=== PATIENT | male | born 1950 | race Caucasian/White ===

== ENCOUNTER 2016-07-03 07:58 | Outpatient (CLI) | payer MEDICARE, OTHER | END 2016-07-03 07:59 | disposition home or self-care (01) | DX: Z79.899 Other long term (current) drug therapy (principal); M19.90 Unspecified osteoarthritis, unspecified site; E78.2 Mixed hyperlipidemia ==

== ENCOUNTER 2017-03-26 09:43 | Outpatient (CLI) | payer MEDICARE, OTHER ==
--- NOTE | 2017-03-26 13:06 | XRAY Report ---
TWO VIEW STANDING BILATERAL KNEES: 03/26/2017 CLINICAL INDICATION: Pain. FINDINGS: Standing frontal and lateral views of both knees are compared to films of the left knee of 04/30/2011. Mild osteoarthritis is again seen. There is no evidence of interval fracture. A moderate left joint e ffusion is now present. No right effusion is seen. Patellar and tibial enthesophytes are noted bilate rally. IMPRESSION: MODERATE LEFT KNEE JOINT EFFUSION. MILD BILATERAL OSTEOARTHRITIS. JOB #: [id number] EXT JOB #:[id number]
== END 2017-03-26 09:44 | disposition home or self-care (01) ==
LOC: DI 09:43
PROVIDERS: ATTEND Nurse Practitioner Primary Care
DX: M17.0 Bilateral primary osteoarthritis of knee (principal); M25.462 Effusion, left knee
CPT/HCPCS: 73565

== ENCOUNTER 2017-07-14 08:17 | Outpatient (CLI) | payer MEDICARE, OTHER ==
[2017-07-14 10:52] LABS: ALBUMIN 4.2 g/dL (3.2-5.5); ALBUMIN/GLOBULIN RATIO 1.6 (1.0-2.2); ALKALINE PHOSPHATASE 44 IU/L (42-121); ALT ALANINE AMINOTRANSFERASE 20 IU/L (10-60); AST ASPARTATE AMINOTRANSFERASE 21 IU/L (10-42); BASOPHILS % (AUTO) 0.3 %; BILIRUBIN,TOTAL 1.3 mg/dL (0.2-1.0); BUN - BLOOD UREA NITROGEN 23 mg/dL (6-20); CARBON DIOXIDE - CO2 26 mmol/L (21-32); CHLORIDE 102 mmol/L (101-111); CHOL/HDL RATIO 4.2 (<5.0); CHOLESTEROL 235 mg/dL; EOSINOPHILS # (AUTO) 0.2 10^3/uL (0.0-0.7); EOSINOPHILS % (AUTO) 3.1 %; GFR - MDRD 75 (>89); GLUCOSE 97 mg/dL (70-100); HDL CHOLESTEROL 56 mg/dL; HGB - HEMOGLOBIN 16.6 g/dL (14.0-18.0); LDL CHOLESTEROL,CALCULATED 158 mg/dL; LDL/HDL RATIO 2.8 (<3.6); LYMPHOCYTES # (AUTO) 1.9 10^3/uL (1.5-3.5); LYMPHOCYTES % (AUTO) 33.7 %; MEAN CORPUSCULAR HEMOGLOBIN 30.3 pg (27.0-31.0); MEAN CORPUSCULAR HGB CONC 34.4 g/dL (32.0-36.0); MEAN PLATELET VOLUME 9.2 fL (7.4-11.4); MONOCYTES # (AUTO) 0.5 10^3/uL (0.0-1.0); MONOCYTES % (AUTO) 8.3 %; NEUTROPHILS # (AUTO) 3.2 10^3/uL (1.5-6.6); NEUTROPHILS % (AUTO) 54.6 %; PLT - PLATELET COUNT 165 10^3/uL (130-450); RED BLOOD COUNT 5.48 10^6/uL (4.70-6.10); RED CELL DISTRIBUTION WIDTH 14.1 % (12.0-15.0); SODIUM 136 mmol/L (135-145); TOTAL PROTEIN 6.8 g/dL (6.7-8.2); VLDL CHOLESTEROL 21 mg/dL; WHITE BLOOD COUNT 5.8 x10^3/uL (4.8-10.8)
[2017-07-14 11:07] LABS: HB2 TOTAL 18.3 g/dL; HEMOGLOBIN A1C 0.68 g/dL; HEMOGLOBIN A1C % 5.6 % (4.6-6.2)
== END 2017-07-14 08:18 | disposition home or self-care (01) ==
LOC: LAB.F 08:17
PROVIDERS: ATTEND Internal Medicine
DX: Z01.818 Encounter for other preprocedural examination (principal); R73.9 Hyperglycemia, unspecified; E78.5 Hyperlipidemia, unspecified; M23.92 Unspecified internal derangement of left knee
CPT/HCPCS: 36415; 80053; 80061; 81001; 81003; 83036; 83721; 85025; 87086

== ENCOUNTER 2018-08-08 07:49 | Outpatient (CLI) | payer MEDICARE, OTHER ==
[2018-08-08 11:22] LABS: ALBUMIN 4.1 g/dL (3.2-5.5); ALBUMIN/GLOBULIN RATIO 1.6 (1.0-2.2); ALKALINE PHOSPHATASE 45 IU/L (42-121); ALT ALANINE AMINOTRANSFERASE 23 IU/L (10-60); AST ASPARTATE AMINOTRANSFERASE 25 IU/L (10-42); BUN - BLOOD UREA NITROGEN 17 mg/dL (6-20); CALCIUM 8.9 mg/dL (8.5-10.3); CARBON DIOXIDE - CO2 25 mmol/L (21-32); CHLORIDE 101 mmol/L (101-111); CHOL/HDL RATIO 3.7 (<5.0); CHOLESTEROL 213 mg/dL; CREATININE 0.7 mg/dL (0.6-1.2); GFR - MDRD 112 (>89); GLUCOSE 113 mg/dL (70-100); HDL CHOLESTEROL 57 mg/dL; LDL CHOLESTEROL,CALCULATED 141 mg/dL; LDL/HDL RATIO 2.5 (<3.6); SODIUM 134 mmol/L (135-145); TOTAL PROTEIN 6.7 g/dL (6.7-8.2); VLDL CHOLESTEROL 15 mg/dL
[2018-08-08 11:40] LABS: HB2 TOTAL 18.1 g/dL; HEMOGLOBIN A1C 0.67 g/dL; HEMOGLOBIN A1C % 5.5 % (4.6-6.2)
== END 2018-08-08 07:50 | disposition home or self-care (01) ==
LOC: LAB.F 07:49
PROVIDERS: ATTEND Internal Medicine
DX: E78.5 Hyperlipidemia, unspecified (principal); R73.02 Impaired glucose tolerance (oral); Z12.5 Encounter for screening for malignant neoplasm of prostate
CPT/HCPCS: 36415; 80053; 80061; 83036; G0103; 83721; 84153

== ENCOUNTER 2020-05-24 07:00 | Outpatient (CLI) | payer MEDICARE, OTHER | END 2020-05-24 23:59 | disposition home or self-care (01) | LOC: COV 07:00 | PROVIDERS: ATTEND Ophthalmology | DX: Z01.812 Encounter for preprocedural laboratory examination (principal); H25.811 Combined forms of age-related cataract, right eye; Z20.822 Contact with and (suspected) exposure to COVID-19 ==

== ENCOUNTER 2020-06-07 14:54 | Outpatient (CLI) | payer MEDICARE, OTHER | END 2020-06-07 14:55 | disposition home or self-care (01) | LOC: COV 14:54 | PROVIDERS: ATTEND Ophthalmology | DX: Z01.812 Encounter for preprocedural laboratory examination (principal); H25.811 Combined forms of age-related cataract, right eye; Z20.822 Contact with and (suspected) exposure to COVID-19 ==

== ENCOUNTER 2020-06-13 06:56 | Day surgery (SDC) | payer MEDICARE, OTHER ==
[~2020-06-13 06:56] MED LIST: KETOROLAC 0.45% OPHTH DROPS ONE; PHENYLEPHRINE 2.5% OPHTH 2 ML DROPS ONE; PROPARACAINE 0.5% OPHTH DROPS 15 ML ONE
[2020-06-13] MEDS ORDERED: LACTATED RINGERS 500 ML IV ONE ×2 (07:20→08:29)
[2020-06-13] MEDS ORDERED: KETOROLAC 0.45% OPHTH DROPS ONE (07:42)
--- NOTE | 2020-06-13 07:44 | ANESTHESIA ---
Pre-Anesthesia VS, & Labs - Diagnosis Right cataract - Procedure Right PhacoIOL Vital Signs: Temp Pulse Resp BP Pulse Ox 36.4 C L 70 19 156/93 H 99 06/13/20 07:00 06/13/20 07:00 06/13/20 07:00 06/13/20 07:00 06/13/20 07:00 Height: 5 ft 11 in Weight (kg): 95 kg Body Mass Index: 29.2 BMI Classification: Overweight - NPO Other (black coffee at 0450 06/13/20) Home Medications and Allergies Home Medications: Ambulatory Orders Doxycycline Hyclate [Vibramycin] 100 mg PO BID 06/12/20 Multivitamin/Iron/Folic Acid [Centrum Adults Tablet] 1 tab PO DAILY 06/12/20 Naproxen Sodium [Aleve] 440 mg PO DAILY 06/12/20 Testosterone Cypionate [Depo-Testosterone] 100 mg IM ONCE 06/12/20 metroNIDAZOLE 0.75% GEL 1 applic TOP DAILY 06/12/20 Doxycycline Hyclate [Vibramycin] 100 mg PO BID 06/12/20 Multivitamin/Iron/Folic Acid [Centrum Adults Tablet] 1 tab PO DAILY 06/12/20 Naproxen Sodium [Aleve] 440 mg PO DAILY 06/12/20 Testosterone Cypionate [Depo-Testosterone] 100 mg IM ONCE 06/12/20 metroNIDAZOLE 0.75% GEL 1 applic TOP DAILY 06/12/20 Allergies/Adverse Reactions: Allergies Allergy/AdvReac Type Severity Reaction Status Date / Time No Known Drug Allergies Allergy Verified 06/12/20 13:44 Anes History & Medical History - Anesthetic History Family history of Anesthesia Complications: Denies Family history of Malignant Hyperthermia: Denies - Medical History Cardiovascular: reports: None Pulmonary: reports: None Gastrointestinal: reports: None Urinary: reports: None Musculoskeletal: reports: None Endocrine/Autoimmune: reports: None Skin: reports: Rosacea Psychosocial: reports: No issues indicated - Surgical History Dermatologic: Other Exam Dental: WNL Neck Mobility: Normal Mallampati classification: I Thyromental Distance: 4-6 cm Respiratory: Lungs clear Cardiovascular: Regular rate Abdomen: Normal bowel sounds Extremities: No clubbing Neurological: Normal gait Mental/Cognitive Status: Alert/Oriented X3 Cognitive Status: Within normal limits (ANIAK, R hearing aid removed) Plan Anesthesia Type: MAC Consent for Procedure(s) Verified and Reviewed: Yes Code Status: Attempt Resuscitation ASA classification: 2-Mild systemic disease Is this case an emergency?: No
[2020-06-13] MEDS ORDERED: MIDAZOLAM 2 MG/2 ML VIAL ONE (07:53)
[2020-06-13] MEDS ORDERED: EPINEPHrine 1 MG/ML AMP ONE (07:57)
[2020-06-13] MEDS ORDERED: TRIAMCIN/MOXIFLOX OPHTHALMIC 0.6 ML VIAL IO ONE ×2 (07:57→08:17)
[2020-06-13] MEDS ORDERED: VANCOMYCIN OPHTHALMI 8MG/0.8ML 8 MG/0.8 ML SYRINGE IO ONE ×2 (07:58→08:18)
[2020-06-13] MEDS ORDERED: BSS/LIDOCAINE/EPINEPHRINE 1 ML SYRINGE ONE (07:58)
[2020-06-13] MEDS ORDERED: TIMOLOL 0.5% OPHTH DROPS ONE (07:58)
[2020-06-13] MEDS ORDERED: BRIMONIDINE 0.2% OPHTH DROPS 5 ML ONE (07:58)
[2020-06-13] MEDS ORDERED: BRIMONIDINE 0.2% OPHTH DROPS 5 ML OPTH ONE (08:17)
[2020-06-13] MEDS ORDERED: CHONDR SULF/HYALURONATE SYRINGE IO ONE (08:17)
[2020-06-13] MEDS ORDERED: TIMOLOL 0.5% OPHTH DROPS OPTH ONE (08:17)
[2020-06-13] MEDS ORDERED: EPINEPHrine 1 MG/ML AMP IR ONE (08:17)
[2020-06-13] MEDS ORDERED: BSS/LIDOCAINE/EPINEPHRINE 1 ML SYRINGE IO ONE (08:17)
[2020-06-13] MEDS ORDERED: PROPARACAINE 0.5% OPHTH DROPS 15 ML EACHEYE ONE (08:18)
[2020-06-13 08:44] VITALS: BP 144/69
--- NOTE | 2020-06-13 09:06 | OPERATIVE REPORT ---
DATE OF SERVICE: 06/13/2020 Physician: Blayne Baker MD PREOPERATIVE DIAGNOSIS: Visually significant cataract, right eye. This was his first cataract surge ry. POSTOPERATIVE DIAGNOSIS: Visually significant cataract, right eye. This was his first cataract surg herrera. PROCEDURE: Phacoemulsification with posterior chamber intraocular lens implant, right eye. SURGEON: Blayne Baker MD ANESTHESIA: Monitored anesthesia care. COMPLICATIONS: None. OPERATIVE INDICATIONS: This is a 70-year-old man with progressive vision loss in the right eye due t o 2+ nuclear sclerotic and 3+ cortical cataract. Best corrected visual acuity was 20/25, with glare to hand motion vision in the right eye. Indications for surgery are overall decrease in vision, diff iculty seeing words on a computer screen, difficulty reading, difficulty seeing words on closed capti on or game scores on TV, difficulty seeing street signs, difficulty driving in low light or at night, difficulty driving at night because of headlights from other vehicles, difficulty with glare or brig ht lights in any situation, and difficulty tracking a golf ball. He was consented at length concerni ng risks and benefits of cataract surgery, after which he expressed a desire to proceed with surgery. OPERATIVE PROCEDURE: The patient was taken to OR #3 and placed under monitored anesthesia care. A s urgical timeout was conducted, confirming correct patient, correct procedure, and correct surgical si te. He was given topical anesthesia, and prepped and draped in the usual sterile fashion. The eye w as entered at the 12 and 9 o'clock positions. Intracameral Shugarcaine was injected into the anterio r chamber, followed by Viscoat. A continuous-tear curvilinear capsulorrhexis was performed. The nuc leus was hydrodissected and phacoemulsified. Cortex was evacuated using automated infusion and aspir ation. Provisc was injected in the capsular bag, and a 19.5 diopter intraocular lens inserted in the bag. Infusion and aspiration were used to evacuate the viscoelastic materials. The eye was inflate d to physiologic pressure using balanced salt solution and found to be watertight. Approximately 0.2 5 mL of a mixture of triamcinolone and moxifloxacin was injected transsclerally into the vitreous in the inferotemporal quadrant. An additional 0.55 mL of a mixture of triamcinolone, moxifloxacin, and vancomycin was injected subconjunctivally in the superior quadrant for infection and inflammation pro phylaxis. Wound integrity was checked with Weck-Radha sponges. Patient was taken from the operating r oom in good condition and given postoperative instructions. TD: 06/13/2020 08:42
--- NOTE | 2020-06-13 11:44 | ANESTHESIA POST OP EVALUATION ---
Anesthesia Post Eval - Post Anesthesia Eval Vitals: Last Vital Signs Temp 36.8 C 06/13/20 08:28 Pulse 76 06/13/20 08:44 Resp 17 06/13/20 08:44 BP 144/69 H 06/13/20 08:44 Pulse Ox 99 06/13/20 08:44 CV Function Including HR & BP: positive: Stable Pain Control: positive: Satisfactory Nausea & Vomiting: positive: Negative Mental Status: positive: Baseline Respiratory Status: Airway Patent Hydration Status: Satisfactory Anesthesia Complications: positive: None
== END 2020-06-13 06:57 | disposition home or self-care (01) ==
LOC: SDS 06:56
PROVIDERS: ATTEND Ophthalmology
DX: H25.811 Combined forms of age-related cataract, right eye (principal); E66.3 Overweight; Z68.29 Body mass index [BMI] 29.0-29.9, adult
CPT/HCPCS: 66984; A9270; J3490; J7120

== ENCOUNTER 2020-07-08 16:52 | Outpatient (CLI) | payer MEDICARE, OTHER | END 2020-07-08 16:53 | disposition home or self-care (01) | LOC: COV 16:52 | PROVIDERS: ATTEND Ophthalmology | DX: Z01.812 Encounter for preprocedural laboratory examination (principal); H25.812 Combined forms of age-related cataract, left eye; Z20.822 Contact with and (suspected) exposure to COVID-19 ==

== ENCOUNTER 2020-07-11 07:39 | Day surgery (SDC) | payer MEDICARE, OTHER ==
[2020-07-11] MEDS ORDERED: LACTATED RINGERS 500 ML IV ONE (07:53)
[2020-07-11] MEDS ORDERED: EPINEPHrine 1 MG/ML AMP ONE (08:32)
[2020-07-11] MEDS ORDERED: BRIMONIDINE 0.2% OPHTH DROPS 5 ML ONE (08:32)
[2020-07-11] MEDS ORDERED: TRIAMCIN/MOXIFLOX OPHTHALMIC 0.6 ML VIAL IO ONE ×2 (08:32→08:59)
[2020-07-11] MEDS ORDERED: BSS/LIDOCAINE/EPINEPHRINE 1 ML SYRINGE ONE (08:33)
[2020-07-11] MEDS ORDERED: VANCOMYCIN OPHTHALMI 8MG/0.8ML 8 MG/0.8 ML SYRINGE IO ONE ×2 (08:33→09:00)
[2020-07-11] MEDS ORDERED: TIMOLOL 0.5% OPHTH DROPS ONE (08:33)
--- NOTE | 2020-07-11 08:56 | ANESTHESIA ---
Pre-Anesthesia VS, & Labs - Diagnosis L cataract - Procedure L PhacoIOL Vital Signs: Temp Pulse Resp BP Pulse Ox 36.5 C 66 17 154/93 H 96 07/11/20 07:54 07/11/20 07:54 07/11/20 07:54 07/11/20 07:54 07/11/20 07:54 Height: 5 ft 11 in Weight (kg): 95.3 kg Body Mass Index: 29.2 BMI Classification: Overweight - NPO >8 hours Home Medications and Allergies Doxycycline Hyclate [Vibramycin] 100 mg PO BID 06/12/20 Multivitamin/Iron/Folic Acid [Centrum Adults Tablet] 1 tab PO DAILY 06/12/20 Naproxen Sodium [Aleve] 440 mg PO DAILY 06/12/20 Testosterone Cypionate [Depo-Testosterone] 100 mg IM ONCE 06/12/20 metroNIDAZOLE 0.75% GEL [Flagyl Gel] 1 applic TOP DAILY 06/12/20 Allergies/Adverse Reactions: Allergies Allergy/AdvReac Type Severity Reaction Status Date / Time No Known Drug Allergies Allergy Verified 06/12/20 13:44 Anes History & Medical History - Anesthetic History Anesthesia Complications: reports: No previous complications Family history of Anesthesia Complications: Denies Family history of Malignant Hyperthermia: Denies - Medical History Cardiovascular: reports: None Pulmonary: reports: None Gastrointestinal: reports: None - Surgical History General: reports: Colonoscopy Eyes Ears Nose Throat (EENT): reports: Cataracts Exam Dental: WNL Mouth Openin Fingerbreadth Neck Mobility: Normal Mallampati classification: II Thyromental Distance: 4-6 cm Plan Anesthesia Type: MAC Consent for Procedure(s) Verified and Reviewed: Yes Code Status: Attempt Resuscitation ASA classification: 2-Mild systemic disease Is this case an emergency?: No
[2020-07-11] MEDS ORDERED: BRIMONIDINE 0.2% OPHTH DROPS 5 ML OPTH ONE (08:58)
[2020-07-11] MEDS ORDERED: TIMOLOL 0.5% OPHTH DROPS OPTH ONE (08:59)
[2020-07-11] MEDS ORDERED: EPINEPHrine 1 MG/ML AMP IR ONE (08:59)
[2020-07-11] MEDS ORDERED: BSS/LIDOCAINE/EPINEPHRINE 1 ML SYRINGE IO ONE (08:59)
[2020-07-11] MEDS ORDERED: PROPARACAINE 0.5% OPHTH DROPS 15 ML EACHEYE ONE (08:59)
[2020-07-11] MEDS ORDERED: CHONDR SULF/HYALURONATE SYRINGE IO ONE (08:59)
[2020-07-11] MEDS ORDERED: MIDAZOLAM 2 MG/2 ML VIAL ONE (09:04)
[2020-07-11] MEDS ORDERED: LACTATED RINGERS 0 ML IV ONE (09:09)
[2020-07-11 09:11] VITALS: BP 149/92
--- NOTE | 2020-07-11 09:30 | OPERATIVE REPORT ---
DATE OF SERVICE: 07/11/2020 Physician: Blayne Baker MD PREOPERATIVE DIAGNOSIS: Visually significant cataract, left eye. Cataract surgery was performed on the right eye on 06/13/2020. POSTOPERATIVE DIAGNOSIS: Visually significant cataract, left eye. Cataract surgery was performed on the right eye on 06/13/2020. PROCEDURE: Phacoemulsification with posterior chamber intraocular lens implant, left eye. SURGEON: Blayne Baker MD ANESTHESIA: Monitored anesthesia care. COMPLICATIONS: None. OPERATIVE INDICATIONS: This is a 70-year-old man with progressive vision loss in the left eye due to 2+ nuclear sclerotic and 3+ cortical cataract. Best corrected visual acuity was 20/25, with glare t o hand motion vision in the left eye. Indications for surgery are overall decrease in vision, diffic ulty reading, difficulty seeing street signs, difficulty driving at night because of headlights from other vehicles, difficulty with glare or bright lights in any situation, and difficulty tracking a go lf ball. He was consented at length concerning risks and benefits of cataract surgery, after which h e expressed a desire to proceed with surgery. OPERATIVE PROCEDURE: The patient was taken to OR #3 and placed under monitored anesthesia care. Allen gical timeout was conducted confirming correct patient, correct procedure, and correct surgical site. He was given topical anesthesia, and prepped and draped in the usual sterile fashion. The eye was entered at the 6 and 3 o'clock positions. Intracameral Shugarcaine was injected into the anterior chamber, followed by Viscoat. A continuous-tear curvilinear capsulorrhexis was performed. Nucleus was hydrodissected and phacoemulsified. The cortex was evacuated using automated infusion a nd aspiration. Provisc was injected in the capsular bag, and a 20.0 diopter intraocular lens inserte d in the bag. Infusion and aspiration were used to evacuate the viscoelastic materials. The eye was inflated to physiologic pressure using balanced salt solution and found to be watertight. Approxima tely 0.25 mL of a mixture of triamcinolone and moxifloxacin was injected transsclerally into the vitr eous in the inferotemporal quadrant. An additional 0.55 mL of a mixture of triamcinolone, moxifloxac in, and vancomycin was injected subconjunctivally in the superior quadrant for infection and inflamma tion prophylaxis. Integrity was checked with Weck-Radha sponges. The patient was taken from the operating room in good c ondition and given postoperative instructions. TD: 07/11/2020 09:23
--- NOTE | 2020-07-11 10:06 | ANESTHESIA POST OP EVALUATION ---
Anesthesia Post Eval - Post Anesthesia Eval Vitals: Last Vital Signs Temp 36.3 C L 07/11/20 09:10 Pulse 70 07/11/20 09:10 Resp 16 07/11/20 09:10 BP 149/92 H 07/11/20 09:10 Pulse Ox 99 07/11/20 09:10 CV Function Including HR & BP: positive: Stable Pain Control: positive: Satisfactory Nausea & Vomiting: positive: Negative Mental Status: positive: Baseline Respiratory Status: Airway Patent Hydration Status: Satisfactory Anesthesia Complications: positive: None
== END 2020-07-11 07:40 | disposition home or self-care (01) ==
LOC: SDS 07:39
PROVIDERS: ATTEND Ophthalmology
DX: H25.812 Combined forms of age-related cataract, left eye (principal); E66.3 Overweight; Z68.29 Body mass index [BMI] 29.0-29.9, adult; Z87.891 Personal history of nicotine dependence; Z98.41 Cataract extraction status, right eye
CPT/HCPCS: 66984; A9270; J7120; V2632

== ENCOUNTER 2020-08-05 08:02 | Outpatient (CLI) | payer MEDICARE, OTHER ==
[2020-08-05 14:13] LABS: BASOPHILS % (AUTO) 0.4 %; EOSINOPHILS # (AUTO) 0.2 10^3/uL (0.0-0.7); EOSINOPHILS % (AUTO) 3.6 %; HCT - HEMATOCRIT 47.9 % (42.0-52.0); HGB - HEMOGLOBIN 15.9 g/dL (14.0-18.0); LYMPHOCYTES # (AUTO) 2.1 10^3/uL (1.5-3.5); LYMPHOCYTES % (AUTO) 37.3 %; MEAN CORPUSCULAR HEMOGLOBIN 30.2 pg (27.0-31.0); MEAN CORPUSCULAR HGB CONC 33.2 g/dL (32.0-36.0); MEAN CORPUSCULAR VOLUME 91.1 fL (80.0-94.0); MONOCYTES # (AUTO) 0.4 10^3/uL (0.0-1.0); MONOCYTES % (AUTO) 7.9 %; NEUTROPHILS # (AUTO) 2.8 10^3/uL (1.5-6.6); NEUTROPHILS % (AUTO) 50.6 %; PLT - PLATELET COUNT 192 10^3/uL (130-450); RED BLOOD COUNT 5.26 10^6/uL (4.70-6.10); RED CELL DISTRIBUTION WIDTH 13.5 % (12.0-15.0); WHITE BLOOD COUNT 5.6 x10^3/uL (4.8-10.8)
== END 2020-08-05 08:03 | disposition home or self-care (01) ==
LOC: LAB.S 08:02
PROVIDERS: ATTEND Internal Medicine
DX: E29.1 Testicular hypofunction (principal); Z12.5 Encounter for screening for malignant neoplasm of prostate; Z51.81 Encounter for therapeutic drug level monitoring; Z79.899 Other long term (current) drug therapy
CPT/HCPCS: 36415; 84402; 84403; 85025; G0103; 81599; 84153

== ENCOUNTER 2020-10-18 07:21 | Outpatient (CLI) | payer MEDICARE, OTHER ==
[2020-10-18 15:17] LABS: CHOL/HDL RATIO 4.1 (<5.0); CHOLESTEROL 207 mg/dL; HDL CHOLESTEROL 51 mg/dL; LDL CHOLESTEROL,CALCULATED 139 mg/dL; LDL/HDL RATIO 2.7 (<3.6); TRIGLYCERIDES 86 mg/dL; VLDL CHOLESTEROL 17 mg/dL
[2020-10-18 15:42] LABS: BASOPHILS % (AUTO) 0.2 %; EOSINOPHILS # (AUTO) 0.3 10^3/uL (0.0-0.7); EOSINOPHILS % (AUTO) 5.2 %; HGB - HEMOGLOBIN 15.7 g/dL (14.0-18.0); LYMPHOCYTES # (AUTO) 1.9 10^3/uL (1.5-3.5); LYMPHOCYTES % (AUTO) 37.5 %; MEAN CORPUSCULAR HEMOGLOBIN 30.3 pg (27.0-31.0); MEAN CORPUSCULAR HGB CONC 33.4 g/dL (32.0-36.0); MEAN CORPUSCULAR VOLUME 90.7 fL (80.0-94.0); MEAN PLATELET VOLUME 11.1 fL (7.4-11.4); MONOCYTES # (AUTO) 0.7 10^3/uL (0.0-1.0); MONOCYTES % (AUTO) 12.9 %; NEUTROPHILS # (AUTO) 2.2 10^3/uL (1.5-6.6); PLT - PLATELET COUNT 174 10^3/uL (130-450); RED BLOOD COUNT 5.18 10^6/uL (4.70-6.10); RED CELL DISTRIBUTION WIDTH 13.2 % (12.0-15.0)
== END 2020-10-18 07:22 | disposition home or self-care (01) ==
LOC: LAB.S 07:21
PROVIDERS: ATTEND Internal Medicine
DX: N41.9 Inflammatory disease of prostate, unspecified (principal); Z79.899 Other long term (current) drug therapy; E29.1 Testicular hypofunction
CPT/HCPCS: 36415; 80061; 81599; 83721; 84153; 84402; 84403; 85025

== ENCOUNTER 2020-12-24 07:36 | Outpatient (CLI) | payer MEDICARE, OTHER ==
--- NOTE | 2020-12-24 09:35 | XRAY Report ---
PROCEDURE: Foot 3 View RT INDICATIONS: PLANTAR FASCIITIS TECHNIQUE: 3 views of the foot were acquired. COMPARISON: None FINDINGS: Bones: No fractures or dislocations. No suspicious bony lesions. Large calcaneal bone spurs. Soft tissues: No tibiotalar joint effusion. Achilles tendon appears normal. IMPRESSION: Calcaneal bone spurs. Reviewed by: Martha Maier MD, PhD on 12/24/2020 9:34 AM PDT Approved by: Martha Maier MD, PhD on 12/24/2020 9:34 AM PDT Station ID: [id number]
== END 2020-12-24 23:59 | disposition home or self-care (01) ==
LOC: DI.S 07:36
PROVIDERS: ATTEND Emergency Medicine
DX: M77.31 Calcaneal spur, right foot (principal)

== ENCOUNTER 2021-02-06 11:19 | Outpatient (CLI) | payer MEDICARE, OTHER | END 2021-02-06 11:20 | disposition home or self-care (01) | LOC: RT 11:19 | PROVIDERS: ATTEND Internal Medicine Cardiovascular Disease | DX: R06.00 Dyspnea, unspecified (principal) | CPT/HCPCS: 93005 ==

== ENCOUNTER 2021-02-20 07:44 | Outpatient (CLI) | payer MEDICARE, OTHER ==
--- NOTE | 2021-02-20 08:41 | CARDIAC PROCEDURE NOTE ---
Stress Test Report Service Date: 02/20/21 Service Time: 08:00 Ordering Provider: Josafat Newton MD Indication for Test: Assess exertional shortness of breath and chest pressure. Significant Medical History: -Bertin reports a long history of gradually increasing dyspnea with exertion dating back about 20 years; his exertional dyspnea has gradually gotten worse in recent months. Whereas last winter he was riding his bicycle while on vacation in [place], since return to [facility] this spring he has been quite sedentary. Upon walking uphill to his mailbox locally, in addition to shortness of breath he has been experiencing pressure-like chest discomfort to a moderate degree. These symptoms may also be associated with a sensation of wheezing and diaphoresis, though the latter is not dramatic. His symptoms austen with rest and he has not experienced them at rest. -He also reports taking testosterone shots every 2 weeks and if he is even a few days late he begins to feel poorly and may awaken at night with sweating. He has not been previously treated with medication for hypertension or hyperlipidemia, though perhaps there has been some evidence of these entities at his medical examinations. Cardiac Risk Factors: He reports untreated hyperlipidemia and a brother with history of stroke in his brother at age ~70; no known history of hypertension, diabetes and only mild remote smoking history. Type of Stress Test: ETT with Echocardiography Procedure: -Exercise Treadmill Test- After signing informed consent, resting echo images were obtained and the patient then performed treadmill exercise using a Jeffrey protocol. The patient exercised for 6 minutes 37 seconds and achieved a peak heart rate of 146 (97 percent predicted maximum heart rate for age), and an estimated workload of 10.2 METS. The test was terminated due to fatigue/shortness of breath after having achieved his target heart rate. Resting heart rate: 72 Peak heart rate: 146 Normal response to exercise. Resting BP: 177/106 Peak BP: 243/124 Hypertensive at rest with physiologic BP increase with exercise. Rhythm during exercise: Sinus rhythm throughout, with occasional isolated PVCs during exercise; ectopy frequency increased in early recovery, with new occurrence of couplets and triplets. Symptoms: Dyspnea increased early in stage I, soon accompanied by chest press ure, though the latter did not increase significantly through the exercise phase. He also perceived wheezing, which appeared to be from an upper airway source as auscultation of his lungs did not confirm true bronchoconstriction. These symptoms decreased gradually in recovery. EKG at rest showed normal sinus rhythm, normal in all aspects. EKG at peak stress showed J-point depression with upsloping ST segments, NOT clearly meeting criteria for ischemia. In Recovery after stress echo images were obtained, monitoring had to be removed as the patient had an urgent need to void; thus follow up data on HR and BP in recovery is not available. Echo imaging performed at rest and with stress will be reported separately. ISachin MD, was present throughout this treadmill stress echoca rdiogram and supervised it in its entirety. Summary: 1) Exercise tolerance slightly below average for age and gender as evidenced by SOCRATES of 8% (sedentary scale). 2) Normal resting EKG. 3) Adequate level of exercise was achieved on this treadmill stress test. 4) Markedly hypertensive at rest with physiologic BP increase with exercise. 5) No clear ischemic ST changes were seen at peak stress. However there was increased ectopy frequency and grade (ie couplets and triplets) in early recovery. 6) Echo image analysis revealed normal left ventricular size and function at rest, with inducible hypokinesis of the mid and distal anterior septum. See separate echo report for further detail. CONCLUSIONS: 1) Marked hypertension at rest, in patient not treated with anti-HTNsive medications. He reports his has an arm BP cuff and over the next few days he will measure and record blood pressures for further evaluation. 2) No clear EKG signs of ischemia, but increase in ectopy frequency and grade during recovery is an adverse prognostic indicator. 3) Echo image analysis reveals normal resting LV wall motion throughout, with inducible anteroseptum hypokinesis, consistent with ischemia. 4) Referring provider (Dr Newton) informed of abnormal results on the day of the study.
== END 2021-02-20 07:45 | disposition home or self-care (01) ==
LOC: DI 07:44
PROVIDERS: ATTEND Internal Medicine Cardiovascular Disease
DX: R07.9 Chest pain, unspecified (principal); E78.5 Hyperlipidemia, unspecified; Z82.3 Family history of stroke; Z87.891 Personal history of nicotine dependence
CPT/HCPCS: 93350

== ENCOUNTER 2021-02-21 07:14 | Outpatient (CLI) | payer MEDICARE, OTHER ==
[2021-02-21 14:45] LABS: BASOPHILS % (AUTO) 0.5 %; EOSINOPHILS # (AUTO) 0.2 10^3/uL (0.0-0.7); EOSINOPHILS % (AUTO) 2.7 %; HCT - HEMATOCRIT 48.8 % (42.0-52.0); HGB - HEMOGLOBIN 16.1 g/dL (14.0-18.0); LYMPHOCYTES # (AUTO) 1.9 10^3/uL (1.5-3.5); LYMPHOCYTES % (AUTO) 33.2 %; MEAN CORPUSCULAR HEMOGLOBIN 30.4 pg (27.0-31.0); MEAN CORPUSCULAR VOLUME 92.2 fL (80.0-94.0); MEAN PLATELET VOLUME 11.1 fL (7.4-11.4); MONOCYTES # (AUTO) 0.5 10^3/uL (0.0-1.0); MONOCYTES % (AUTO) 9.6 %; NEUTROPHILS % (AUTO) 53.6 %; PLT - PLATELET COUNT 176 10^3/uL (130-450); RED BLOOD COUNT 5.29 10^6/uL (4.70-6.10); RED CELL DISTRIBUTION WIDTH 13.7 % (12.0-15.0); WHITE BLOOD COUNT 5.6 x10^3/uL (4.8-10.8)
[2021-02-21 15:18] LABS: ALBUMIN/GLOBULIN RATIO 1.6 (1.0-2.2); ALKALINE PHOSPHATASE 43 IU/L (42-121); ALT ALANINE AMINOTRANSFERASE 19 IU/L (10-60); AST ASPARTATE AMINOTRANSFERASE 20 IU/L (10-42); BILIRUBIN,TOTAL 0.9 mg/dL (0.2-1.0); BUN - BLOOD UREA NITROGEN 19 mg/dL (6-20); CALCIUM 9.1 mg/dL (8.5-10.3); CARBON DIOXIDE - CO2 25 mmol/L (21-32); CHLORIDE 102 mmol/L (101-111); CHOL/HDL RATIO 3.9 (<5.0); CHOLESTEROL 193 mg/dL; CREATININE 0.9 mg/dL (0.6-1.2); GFR - MDRD 83 (>89); GLUCOSE 105 mg/dL (70-100); HDL CHOLESTEROL 50 mg/dL; LDL CHOLESTEROL,CALCULATED 124 mg/dL; LDL/HDL RATIO 2.5 (<3.6); POTASSIUM 4.3 mmol/L (3.5-5.0); SODIUM 136 mmol/L (135-145); TOTAL PROTEIN 6.5 g/dL (6.7-8.2); TRIGLYCERIDES 97 mg/dL; VLDL CHOLESTEROL 19 mg/dL
== END 2021-02-21 07:15 | disposition home or self-care (01) ==
LOC: LAB.S 07:14
PROVIDERS: ATTEND Internal Medicine
DX: E78.5 Hyperlipidemia, unspecified (principal); Z79.899 Other long term (current) drug therapy; E29.1 Testicular hypofunction
CPT/HCPCS: 36415; 80053; 80061; 81599; 83721; 84402; 84403; 85025

== ENCOUNTER 2021-02-26 09:10 | Outpatient (CLI) | payer MEDICARE, OTHER ==
--- NOTE | 2021-02-26 09:26 | XRAY Report ---
PROCEDURE: Chest 2 View X-Ray INDICATIONS: SOB TECHNIQUE: 2 view(s) of the chest. COMPARISON: June 24, 2007 FINDINGS: Surgical changes and devices: None. Lungs and pleura: No pleural effusions or pneumothorax. Lungs are clear. Mediastinum: Mediastinal contours are normal. Heart size is normal. Bones and chest wall: No suspicious bony abnormalities. Soft tissues appear unremarkable. IMPRESSION: No acute cardiopulmonary abnormality. Reviewed by: Ollie Umaña MD on 02/26/2021 9:25 AM PDT Approved by: Ollie Umaña MD on 02/26/2021 9:25 AM PDT Station ID: [id number]
== END 2021-02-26 09:11 | disposition home or self-care (01) ==
LOC: DI.S 09:10
PROVIDERS: ATTEND Internal Medicine
DX: R06.02 Shortness of breath (principal)

== ENCOUNTER 2021-03-19 09:08 | Outpatient (CLI) | payer MEDICARE, OTHER ==
[2021-03-19] MEDS ORDERED: ALBUTEROL 1 PUFF INH STA (11:05)
== END 2021-03-19 09:09 | disposition home or self-care (01) ==
LOC: RT 09:08
PROVIDERS: ATTEND Internal Medicine
DX: R06.02 Shortness of breath (principal)
CPT/HCPCS: 94060; 94729

== ENCOUNTER 2021-04-24 07:17 | Outpatient (CLI) | payer MEDICARE, OTHER ==
[2021-04-24 15:01] LABS: BASOPHILS % (AUTO) 0.3 %; EOSINOPHILS # (AUTO) 0.2 10^3/uL (0.0-0.7); HCT - HEMATOCRIT 50.4 % (42.0-52.0); HGB - HEMOGLOBIN 16.8 g/dL (14.0-18.0); LYMPHOCYTES # (AUTO) 2.1 10^3/uL (1.5-3.5); LYMPHOCYTES % (AUTO) 35.8 %; MEAN CORPUSCULAR HEMOGLOBIN 30.4 pg (27.0-31.0); MEAN CORPUSCULAR HGB CONC 33.3 g/dL (32.0-36.0); MEAN CORPUSCULAR VOLUME 91.3 fL (80.0-94.0); MEAN PLATELET VOLUME 10.8 fL (7.4-11.4); MONOCYTES # (AUTO) 0.5 10^3/uL (0.0-1.0); MONOCYTES % (AUTO) 9.2 %; NEUTROPHILS # (AUTO) 2.9 10^3/uL (1.5-6.6); NEUTROPHILS % (AUTO) 50.4 %; PLT - PLATELET COUNT 180 10^3/uL (130-450); RED BLOOD COUNT 5.52 10^6/uL (4.70-6.10); RED CELL DISTRIBUTION WIDTH 13.6 % (12.0-15.0); WHITE BLOOD COUNT 5.8 x10^3/uL (4.8-10.8)
[2021-04-24 15:27] LABS: ALBUMIN 4.2 g/dL (3.2-5.5); ALBUMIN/GLOBULIN RATIO 1.8 (1.0-2.2); ALKALINE PHOSPHATASE 44 IU/L (42-121); ALT ALANINE AMINOTRANSFERASE 22 IU/L (10-60); AST ASPARTATE AMINOTRANSFERASE 21 IU/L (10-42); BUN - BLOOD UREA NITROGEN 21 mg/dL (6-20); CALCIUM 8.7 mg/dL (8.5-10.3); CARBON DIOXIDE - CO2 25 mmol/L (21-32); CHLORIDE 101 mmol/L (101-111); CHOL/HDL RATIO 3.2 (<5.0); CHOLESTEROL 173 mg/dL; CREATININE 0.8 mg/dL (0.6-1.2); GFR - MDRD 95 (>89); GLUCOSE 101 mg/dL (70-100); HDL CHOLESTEROL 54 mg/dL; LDL CHOLESTEROL,CALCULATED 105 mg/dL; LDL/HDL RATIO 1.9 (<3.6); POTASSIUM 4.1 mmol/L (3.5-5.0); SODIUM 135 mmol/L (135-145); TOTAL PROTEIN 6.6 g/dL (6.7-8.2); TRIGLYCERIDES 69 mg/dL; VLDL CHOLESTEROL 14 mg/dL
== END 2021-04-24 07:18 | disposition home or self-care (01) ==
LOC: LAB.S 07:17
PROVIDERS: ATTEND Internal Medicine
DX: Z79.899 Other long term (current) drug therapy (principal); Z12.5 Encounter for screening for malignant neoplasm of prostate; E29.1 Testicular hypofunction; E78.5 Hyperlipidemia, unspecified
CPT/HCPCS: 36415; 80053; 80061; 84402; 84403; 85025; G0103; 81599; 83721; 84153

== ENCOUNTER 2022-01-30 08:40 | Outpatient (CLI) | payer MEDICARE, OTHER ==
--- NOTE | 2022-01-30 09:52 | Ultrasound Report ---
PROCEDURE: Aorta Screening INDICATIONS: HIST OF TOBACCO USE TECHNIQUE: Real time scanning was performed of the aorta and iliac arteries, with image documentatio n. COMPARISON: None FINDINGS: Aorta: Proximal aortic diameter measures 3.1 x 2.8 cm. Mid-aorta measures 2.7 x 2.6 cm. Distal aor tic diameter is 2.5 x 2.1 cm. Iliac arteries: Right common iliac artery measures 1.1 x 1 cm. Left common iliac artery measures 1 x 1 cm. IMPRESSION: Mild proximal abdominal aortic aneurysm at 3.1 cm. Reviewed by: Zac Bui MD on 01/30/2022 9:50 AM PDT Approved by: Zac Bui MD on 01/30/2022 9:50 AM PDT Station ID: [id number]
== END 2022-01-30 08:41 | disposition home or self-care (01) ==
LOC: DI 08:40
PROVIDERS: ATTEND Internal Medicine
DX: Z13.6 Encounter for screening for cardiovascular disorders (principal); Z87.891 Personal history of nicotine dependence; I71.4 Abdominal aortic aneurysm, without rupture

== ENCOUNTER 2022-07-23 07:17 | Outpatient (CLI) | payer MEDICARE, OTHER ==
[2022-07-23 14:11] LABS: BASOPHILS % (AUTO) 0.6 %; EOSINOPHILS # (AUTO) 0.3 10^3/uL (0.0-0.7); EOSINOPHILS % (AUTO) 4.1 %; HCT - HEMATOCRIT 49.4 % (42.0-52.0); HGB - HEMOGLOBIN 16.2 g/dL (14.0-18.0); LYMPHOCYTES # (AUTO) 2.2 10^3/uL (1.5-3.5); LYMPHOCYTES % (AUTO) 34.1 %; MEAN CORPUSCULAR HEMOGLOBIN 29.6 pg (27.0-31.0); MEAN CORPUSCULAR HGB CONC 32.8 g/dL (32.0-36.0); MEAN CORPUSCULAR VOLUME 90.1 fL (80.0-94.0); MEAN PLATELET VOLUME 11.1 fL (7.4-11.4); MONOCYTES # (AUTO) 0.5 10^3/uL (0.0-1.0); MONOCYTES % (AUTO) 7.9 %; NEUTROPHILS # (AUTO) 3.5 10^3/uL (1.5-6.6); PLT - PLATELET COUNT 192 10^3/uL (130-450); RED BLOOD COUNT 5.48 10^6/uL (4.70-6.10); RED CELL DISTRIBUTION WIDTH 13.8 % (12.0-15.0); WHITE BLOOD COUNT 6.6 x10^3/uL (4.8-10.8)
[2022-07-23 14:33] LABS: ALBUMIN/GLOBULIN RATIO 1.5 (1.0-2.2); ALKALINE PHOSPHATASE 50 IU/L (42-121); ALT ALANINE AMINOTRANSFERASE 23 IU/L (10-60); AST ASPARTATE AMINOTRANSFERASE 23 IU/L (10-42); BILIRUBIN,TOTAL 0.5 mg/dL (0.2-1.0); BUN - BLOOD UREA NITROGEN 18 mg/dL (6-20); CALCIUM 9.3 mg/dL (8.5-10.3); CARBON DIOXIDE - CO2 27 mmol/L (21-32); CHLORIDE 107 mmol/L (101-111); CHOL/HDL RATIO 2.7 (<5.0); CHOLESTEROL 121 mg/dL; CREATININE 0.8 mg/dL (0.6-1.2); GFR - MDRD 95 (>89); GLUCOSE 97 mg/dL (70-100); HDL CHOLESTEROL 45 mg/dL; LDL CHOLESTEROL,CALCULATED 52 mg/dL; LDL/HDL RATIO 1.2 (<3.6); POTASSIUM 4.6 mmol/L (3.5-5.0); SODIUM 140 mmol/L (135-145); TOTAL PROTEIN 6.6 g/dL (6.7-8.2); TRIGLYCERIDES 122 mg/dL; VLDL CHOLESTEROL 24 mg/dL
== END 2022-07-23 07:18 | disposition home or self-care (01) ==
LOC: LAB.S 07:17
PROVIDERS: ATTEND Internal Medicine
DX: I25.10 Atherosclerotic heart disease of native coronary artery without angina pectoris (principal); E29.1 Testicular hypofunction
CPT/HCPCS: 36415; 80053; 80061; 83721; 84153; 84403; 85025

== ENCOUNTER 2022-12-18 08:27 | Outpatient (CLI) | payer MEDICARE, OTHER ==
[2022-12-18 14:56] LABS: BASOPHILS % (AUTO) 0.5 %; EOSINOPHILS # (AUTO) 0.2 10^3/uL (0.0-0.7); EOSINOPHILS % (AUTO) 2.4 %; HCT - HEMATOCRIT 50.3 % (42.0-52.0); HGB - HEMOGLOBIN 16.4 g/dL (14.0-18.0); LYMPHOCYTES # (AUTO) 2.1 10^3/uL (1.5-3.5); LYMPHOCYTES % (AUTO) 32.1 %; MEAN CORPUSCULAR HEMOGLOBIN 29.8 pg (27.0-31.0); MEAN CORPUSCULAR HGB CONC 32.6 g/dL (32.0-36.0); MEAN CORPUSCULAR VOLUME 91.5 fL (80.0-94.0); MEAN PLATELET VOLUME 10.9 fL (7.4-11.4); MONOCYTES # (AUTO) 0.5 10^3/uL (0.0-1.0); MONOCYTES % (AUTO) 7.3 %; NEUTROPHILS # (AUTO) 3.8 10^3/uL (1.5-6.6); NEUTROPHILS % (AUTO) 57.4 %; PLT - PLATELET COUNT 178 10^3/uL (130-450); RED CELL DISTRIBUTION WIDTH 13.9 % (12.0-15.0); WHITE BLOOD COUNT 6.5 x10^3/uL (4.8-10.8)
== END 2022-12-18 08:28 | disposition home or self-care (01) ==
LOC: LAB.S 08:27
PROVIDERS: ATTEND Internal Medicine
DX: E29.1 Testicular hypofunction (principal)
CPT/HCPCS: 36415; 84153; 84403; 85025

== ENCOUNTER 2023-07-16 07:55 | Outpatient (CLI) | payer MEDICARE, OTHER ==
--- NOTE | 2023-07-16 11:31 | Ultrasound Report ---
PROCEDURE: Renal Ltd (Retroperitoneal Ltd INDICATIONS: AAA TECHNIQUE: Real-time scanning was performed of the abdominal aorta. COMPARISON: 01/30/2022 FINDINGS: Proximal abdominal aorta measures 2.6 x 2.6 cm. Mid abdominal aorta measures 2.6 x 2.9 cm The distal abdominal aorta measures 2.2 x 1.6 cm Right common iliac artery measures 1.2 x 1.1 cm. Left common iliac artery measures 1.3 x 0.9 cm IMPRESSION: No evidence of abdominal aortic aneurysm. Previous we noted possible aortic dilation may have been ar tifactual. Reviewed by: John Barboza MD on 07/16/2023 10:30 AM [facility] Approved by: John Barboza MD on 07/16/2023 10:30 AM [facility] Station ID: [id number]
== END 2023-07-16 07:56 | disposition home or self-care (01) ==
LOC: DI 07:55
PROVIDERS: ATTEND Internal Medicine
DX: I71.40 Abdominal aortic aneurysm, without rupture, unspecified (principal)

== ENCOUNTER 2023-07-23 23:37 | Emergency (ER) | payer MEDICARE, OTHER ==
--- NOTE | 2023-07-24 01:34 | ED Physician Documentation ---
PD HPI DYSPNEA - Stated complaint Stated Complaint: SOA/CONGESTION - Chief complaint Chief Complaint: Resp - History obtained from History obtained from: Patient - Additional information Additional information: HPI from patient. Patient complains of gradual onset URI symptoms approximately 5 days ago. Initially, the symptoms were limited to sore throat and a mild, non-productive cough. However, he has become increasingly short of breath over the past 1 to 2 days. The dyspnea is significantly worse when lying supine, mildly exacerbated with exertion. He denies chest pain. He denies fevers. He has not had similar episodes of dyspnea in the past. He does not have any pulmonary diagnoses (such as asthma, COPD). Review of Systems Constitutional: denies: Fever, Chills, Sweats Cardiac: reports: Reviewed and negative Respiratory: reports: Dyspnea, Cough, Wheezing. denies: Hemoptysis Musculoskeletal: denies: Extremity swelling PD PAST MEDICAL HISTORY - Past Medical History Cardiovascular: High cholesterol Respiratory: None GI: None - Past Surgical History Past Surgical History: Yes - Present Medications Home Medications: Ambulatory Orders Medication Instructions Recorded Confirmed Multivitamin/Iron/Folic Acid 1 tab PO DAILY 06/12/20 07/23/23 [Centrum Adults Tablet] Testosterone Cypionate 100 mg IM ONCE 06/12/20 07/23/23 [Depo-Testosterone] Ascorbic Acid [Vitamin C] 500 mg PO DAILY 07/23/23 07/23/23 Aspirin [Aspirin EC] 81 mg PO DAILY 07/23/23 07/23/23 Rosuvastatin Calcium [Crestor] 20 mg PO DAILY 07/23/23 07/23/23 Albuterol Sulf [Ventolin Hfa 1 - 2 puffs INH Q4HR PRN #1 each 07/24/23 Inhaler] - Allergies Allergies/Adverse Reactions: Allergies Allergy/AdvReac Type Severity Reaction Status Date / Time No Known Drug Allergies Allergy Verified 07/23/23 23:49 - Social History Does the pt smoke?: No Smoking Status: Former smoker Substance Use and Type: Marijuana - Immunizations Immunizations are current?: Yes PD ED PE NORMAL - Vitals Vital signs reviewed: Yes - General General: Alert and oriented X 3, No acute distress, Well developed/nourished - Cardiac Cardiac: RRR, No murmur - Respiratory Respiratory: No respiratory distress PD ED PE EXPANDED - Respiratory Respiratory: Wheezing, Rhonchi, Other (Diffuse and bilateral coarse rhonchi as well as coarse expiratory wheeze) Results - Vitals Vitals: Vital Signs - 24 hr 07/23/23 07/24/23 07/24/23 23:49 00:01 02:00 Temperature 36.5 C Heart Rate 81 76 77 Respiratory 22 18 22 Rate Blood Pressure 164/110 H 118/88 H 155/72 H O2 Saturation 97 96 97 07/24/23 07/24/23 02:15 03:30 Temperature Heart Rate 74 81 Respiratory 18 13 Rate Blood Pressure 143/85 H O2 Saturation 96 Oxygen O2 Source Room air - Labs Labs: Laboratory Tests 07/24/23 07/24/23 07/24/23 00:48 02:20 02:20 WBC 7.5 RBC 5.61 Hgb 16.8 Hct 50.0 MCV 89.1 MCH 29.9 MCHC 33.6 RDW 12.9 Plt Count 167 MPV 10.8 Neut # (Auto) 4.1 Lymph # (Auto) 2.6 [place] # (Auto) 0.6 Eos # (Auto) 0.2 Baso # (Auto) 0.0 Absolute Nucleated RBC 0.00 Nucleated RBC % 0.0 Sodium 135 Potassium 4.2 Chloride 103 Carbon Dioxide 26 Anion Gap 6.0 BUN 19 Creatinine 0.8 Estimated GFR (MDRD) 95 Glucose 113 H Calcium 9.1 B-Natriuretic Peptide Nasal Adenovirus (PCR) NOT DETECTED Nasal B. parapertussis DNA (PCR) NOT DETECTED Nasal Coronavir 229E PCR NOT DETECTED Nasal Coronavir HKU1 PCR NOT DETECTED Nasal Coronavir NL63 PCR NOT DETECTED Nasal Coronavir OC43 PCR NOT DETECTED Nasal Enterovir/Rhinovir PCR NOT DETECTED Nasal Influenza B PCR NOT DETECTED Nasal Influenza A PCR NOT DETECTED Nasal Parainfluen 1 PCR DETECTED A Nasal Parainfluen 2 PCR NOT DETECTED Nasal Parainfluen 3 PCR NOT DETECTED Nasal Parainfluen 4 PCR NOT DETECTED Nasal RSV (PCR) NOT DETECTED Nasal B.pertussis DNA PCR NOT DETECTED Nasal C.pneumoniae (PCR) NOT DETECTED Homero Human Metapneumo PCR NOT DETECTED Nasal M.pneumoniae (PCR) NOT DETECTED Nasal SARS-CoV-2 (PCR) NOT DETECTED 07/24/23 02:20 WBC RBC Hgb Hct MCV MCH MCHC RDW Plt Count MPV Neut # (Auto) Lymph # (Auto) [place] # (Auto) Eos # (Auto) Baso # (Auto) Absolute Nucleated RBC Nucleated RBC % Sodium Potassium Chloride Carbon Dioxide Anion Gap BUN Creatinine Estimated GFR (MDRD) Glucose Calcium B-Natriuretic Peptide 20 Nasal Adenovirus (PCR) Nasal B. parapertussis DNA (PCR) Nasal Coronavir 229E PCR Nasal Coronavir HKU1 PCR Nasal Coronavir NL63 PCR Nasal Coronavir OC43 PCR Nasal Enterovir/Rhinovir PCR Nasal Influenza B PCR Nasal Influenza A PCR Nasal Parainfluen 1 PCR Nasal Parainfluen 2 PCR Nasal Parainfluen 3 PCR Nasal Parainfluen 4 PCR Nasal RSV (PCR) Nasal B.pertussis DNA PCR Nasal C.pneumoniae (PCR) Homero Human Metapneumo PCR Nasal M.pneumoniae (PCR) Nasal SARS-CoV-2 (PCR) - Rads (name of study) chest xray Relevant Findings:: Prelim report reviewed, See rad report PD Medical Decision Making - ED course Complexity details: reviewed results, re-evaluated patient, considered differential, d/w patient ED course: Respiratory PCR panel is positive for parainfluenza 1. He has a normal CBC, BNP. BMP is normal except for insignificant finding of blood sugar 113. He is given DuoNeb and reports feeling markedly improved. On reexamination his lungs are now clear without rhonchi nor wheezing. Prescription for albuterol MDI is electronically submitted to patient's pharmacy of choice. Return precautions are reviewed. Departure - Departure Disposition: 01 Home, Self Care Clinical Impression: Bronchitis with bronchospasm, Parainfluenza type 1 infection Condition: Good Instructions: ED Bronchitis Asthmatic Prescriptions: Albuterol Sulf [Ventolin Hfa Inhaler] 1 - 2 puffs INH Q4HR PRN #1 each PRN Reason: Shortness Of Air/Wheezing Comments: There were no concerning nor diagnostic findings on your blood tests. Your chest x-ray is normal; there is no evidence on the chest x-ray of an infectious process in your lungs such as pneumonia. I suspect you have bronchitis, an infec tion in the upper airways that typically does not result in abnormal findings on chest x-ray. The nasal swab tested positive for a virus called parainfluenza. This virus typically has a benign course and does not benefit from any specific/targeted treatment (such as an antibiotic or anti-viral medication). I have electronically submitted a prescription for an albuterol inhaler to the [facility] pharmacy in [place]. You can use the inhaler every 4 hours as needed for shortness of breath/wheezing. Forms: PCP List Discharge Date/Time: 07/24/23 03:47
[2023-07-24 01:45] LABS: CORONAVIRUS 229E-RESP PCR NOT DETECTED; CORONAVIRUS HKU1-RESP PCR NOT DETECTED; CORONAVIRUS NL63-RESP PCR NOT DETECTED; CORONAVIRUS OC43-RESP PCR NOT DETECTED; INFLUENZA A- RESP PCR PANEL NOT DETECTED; INFLUENZA B - RESP PCR PANEL NOT DETECTED; PARAINFLUENZA VIRUS 1 DETECTED; RHINOVIRUS/ENTEROVIRUS NOT DETECTED; SARS-CoV-2 -RESP PCR PANEL NOT DETECTED
[2023-07-24 01:46] LABS: B. PARAPERTUSSIS- RESP PCR PAN NOT DETECTED; B. PERTUSSIS- RESP PCR PANEL NOT DETECTED; C. PNEUMONIAE- RESP PCR PANEL NOT DETECTED; HUMAN METAPNEUMOVIRUS NOT DETECTED; M. PNEUMONIAE- RESP PCR PANEL NOT DETECTED; PARAINFLUENZA VIRUS 2 NOT DETECTED; PARAINFLUENZA VIRUS 3 NOT DETECTED; PARAINFLUENZA VIRUS 4 NOT DETECTED; RSV- RESP PCR PANEL NOT DETECTED
[2023-07-24] MEDS: IPRATROPIUM/ALBUTEROL 3 ML NEB INH STA (02:15)
[2023-07-24 02:43] LABS: CALCIUM 9.1 mg/dL (8.5-10.3); CREATININE 0.8 mg/dL (0.6-1.3); POTASSIUM 4.2 mmol/L (3.5-4.5)
[2023-07-24 02:53] LABS: BASOPHILS % (AUTO) 0.4 %; EOSINOPHILS # (AUTO) 0.2 10^3/uL (0.0-0.7); EOSINOPHILS % (AUTO) 2.5 %; HGB - HEMOGLOBIN 16.8 g/dL (14.0-18.0); LYMPHOCYTES # (AUTO) 2.6 10^3/uL (1.5-3.5); LYMPHOCYTES % (AUTO) 35.2 %; MEAN CORPUSCULAR HEMOGLOBIN 29.9 pg (27.0-31.0); MEAN CORPUSCULAR HGB CONC 33.6 g/dL (32.0-36.0); MEAN CORPUSCULAR VOLUME 89.1 fL (80.0-94.0); MEAN PLATELET VOLUME 10.8 fL (7.4-11.4); MONOCYTES # (AUTO) 0.6 10^3/uL (0.0-1.0); MONOCYTES % (AUTO) 7.9 %; NEUTROPHILS # (AUTO) 4.1 10^3/uL (1.5-6.6); NEUTROPHILS % (AUTO) 53.9 %; PLT - PLATELET COUNT 167 10^3/uL (130-450); RED BLOOD COUNT 5.61 10^6/uL (4.70-6.10); RED CELL DISTRIBUTION WIDTH 12.9 % (12.0-15.0); WHITE BLOOD COUNT 7.5 x10^3/uL (4.8-10.8)
[2023-07-24 03:49] VITALS: BP 143/85; O2SAT 96
--- NOTE | 2023-07-24 07:58 | XRAY Report ---
PROCEDURE: Chest 2V INDICATIONS: cough, wheezing TECHNIQUE: 2 views of the chest were acquired. COMPARISON: 02/26/2021. FINDINGS: Surgical changes and devices: None. Lungs and pleura: No pleural effusions or pneumothorax. Lungs are clear. Mediastinum: Mediastinal contours appear normal. Heart size is normal. Bones and chest wall: No suspicious bony lesions. Overlying soft tissues appear unremarkable. IMPRESSION: No acute cardiopulmonary process. Findings are concordant with preliminary interpretation provided by [facility]. Reviewed by: Blayne Diehl MD on 07/24/2023 7:57 AM PST Approved by: Blayne Diehl MD on 07/24/2023 7:57 AM PST Station ID: [id number]
== END 2023-07-24 03:47 | disposition home or self-care (01) ==
LOC: ED 23:37
DX: B34.8 Other viral infections of unspecified site (principal); J40 Bronchitis, not specified as acute or chronic; E78.00 Pure hypercholesterolemia, unspecified; Z87.891 Personal history of nicotine dependence; Z79.899 Other long term (current) drug therapy
CPT/HCPCS: 36415; 80048; 83880; 85025; 87633; 94640; 99283; 99284

== ENCOUNTER 2023-11-24 07:00 | Outpatient (CLI) | payer MEDICARE, OTHER ==
--- NOTE | 2023-11-24 13:48 | XRAY Report ---
PROCEDURE: Wrist 1-2V LT INDICATIONS: LEFT WRIST OSTEOARTHRITIS TECHNIQUE: 2 views of the wrist were acquired. COMPARISON: None. FINDINGS: Bones: No fractures or dislocations. Mild narrowing of the radiocarpal joint. Mild first CMC and [place] notriquetral joint space narrowing and juxta-articular osteophytosis. No suspicious bony lesions. Soft tissues: No suspicious soft tissue calcifications or masses. IMPRESSION: 1.No acute bony abnormality. If there is anatomic snuff box tenderness, consider wrist immobilization and repeat radiographs in 10-14 days or cross-sectional imaging now. If pain persists with conservat allyssa management, consider repeat radiographs in 10-14 days or cross-sectional imaging. 2.Mild degenerative changes of the radiocarpal, first CMC and lunotriquetral joints. Reviewed by: Reynaldo Auguste MD on 11/24/2023 1:47 PM PDT Approved by: Reynaldo Auguste MD on 11/24/2023 1:47 PM PDT Station ID: [id number]
== END 2023-11-24 23:59 | disposition home or self-care (01) ==
LOC: DI.S 07:00
PROVIDERS: ATTEND Physician Assistant
DX: M18.12 Unilateral primary osteoarthritis of first carpometacarpal joint, left hand (principal); M19.042 Primary osteoarthritis, left hand

== ENCOUNTER 2023-12-24 07:44 | Outpatient (CLI) | payer MEDICARE, OTHER ==
[2023-12-24 15:40] LABS: BASOPHILS % (AUTO) 0.3 %; EOSINOPHILS # (AUTO) 0.2 10^3/uL (0.0-0.7); EOSINOPHILS % (AUTO) 3.2 %; HCT - HEMATOCRIT 50.9 % (42.0-52.0); HGB - HEMOGLOBIN 17.1 g/dL (14.0-18.0); LYMPHOCYTES # (AUTO) 2.2 10^3/uL (1.5-3.5); LYMPHOCYTES % (AUTO) 32.5 %; MEAN CORPUSCULAR HEMOGLOBIN 30.9 pg (27.0-31.0); MEAN CORPUSCULAR HGB CONC 33.6 g/dL (32.0-36.0); MEAN CORPUSCULAR VOLUME 91.9 fL (80.0-94.0); MEAN PLATELET VOLUME 11.2 fL (7.4-11.4); MONOCYTES # (AUTO) 0.6 10^3/uL (0.0-1.0); MONOCYTES % (AUTO) 8.3 %; NEUTROPHILS # (AUTO) 3.7 10^3/uL (1.5-6.6); NEUTROPHILS % (AUTO) 55.5 %; PLT - PLATELET COUNT 168 10^3/uL (130-450); RED BLOOD COUNT 5.54 10^6/uL (4.70-6.10); RED CELL DISTRIBUTION WIDTH 13.4 % (12.0-15.0); WHITE BLOOD COUNT 6.6 x10^3/uL (4.8-10.8)
[2023-12-24 16:41] LABS: ALBUMIN 4.5 g/dL (3.2-5.5); ALBUMIN/GLOBULIN RATIO 2.6 (1.0-2.2); ALKALINE PHOSPHATASE 46 IU/L (42-121); ALT ALANINE AMINOTRANSFERASE 21 IU/L (10-60); AST ASPARTATE AMINOTRANSFERASE 20 IU/L (10-42); BUN - BLOOD UREA NITROGEN 17 mg/dL (6-20); CALCIUM 9.4 mg/dL (8.5-10.3); CARBON DIOXIDE - CO2 29 mmol/L (21-32); CHLORIDE 104 mmol/L (101-111); CHOL/HDL RATIO 2.3 (<5.0); CHOLESTEROL 130 mg/dL; CREATININE 0.9 mg/dL (0.6-1.3); GFR - MDRD 83 (>89); GLUCOSE 104 mg/dL (74-104); HDL CHOLESTEROL 56 mg/dL; LDL CHOLESTEROL,CALCULATED 55 mg/dL; POTASSIUM 4.5 mmol/L (3.5-4.5); SODIUM 138 mmol/L (135-145); TOTAL PROTEIN 6.2 g/dL (6.4-8.9); TRIGLYCERIDES 93 mg/dL; VLDL CHOLESTEROL 19 mg/dL
[2023-12-24 19:58] LABS: ESTIMATED AVERAGE GLUCOSE 105 mg/dL (70-100); HEMOGLOBIN A1c% 5.3 % (4.27-6.07)
== END 2023-12-24 07:45 | disposition home or self-care (01) ==
LOC: LAB.S 07:44
PROVIDERS: ATTEND Internal Medicine
DX: I25.10 Atherosclerotic heart disease of native coronary artery without angina pectoris (principal); Z51.81 Encounter for therapeutic drug level monitoring; Z79.899 Other long term (current) drug therapy; E78.5 Hyperlipidemia, unspecified; R73.02 Impaired glucose tolerance (oral)
CPT/HCPCS: 36415; 80053; 80061; 83036; 83721; 84153; 84403; 85025

== ENCOUNTER 2023-12-30 13:07 | Outpatient (CLI) | payer MEDICARE, OTHER ==
--- NOTE | 2023-12-30 15:26 | XRAY Report ---
PROCEDURE: Knee 3V BL INDICATIONS: BILATERAL KNEE OSTEOARTHRITIS TECHNIQUE: 4 views of the knee(s) were acquired. COMPARISON: Left knee radiograph on March 26, 2017. FINDINGS: Bones: No fractures or dislocations. Left lateral knee hemiarthroplasty hardware is intact with no p erihardware lucency to suggest hardware loosening. Left medial and patellofemoral compartments demons trate mild to moderate joint space narrowing and juxta-articular osteophytosis. Right knee demonstrat e moderate medial and patellofemoral and mild lateral compartment joint space narrowing and juxta-art icular osteophytosis. Right knee demonstrates tricompartmental chondrocalcinosis. No suspicious bony lesions. Soft tissues: Trace bilateral suprapatellar joint effusions. No suspicious soft tissue calcifications or masses. IMPRESSION: 1.No acute bony abnormality. 2.Right knee demonstrates tricompartmental osteoarthritis which is worse in the medial compartment wi th tricompartmental chondrocalcinosis. 3.Left knee demonstrate lateral hemiarthroplasty hardware is intact without complication. Mild to mod erate medial and patellofemoral compartment osteoarthritis. Reviewed by: Reynaldo Auguste MD on 12/30/2023 3:25 PM PDT Approved by: Reynaldo Auguste MD on 12/30/2023 3:25 PM PDT Station ID: [id number]
== END 2023-12-30 13:08 | disposition home or self-care (01) ==
LOC: DI 13:07
PROVIDERS: ATTEND Internal Medicine
DX: M17.0 Bilateral primary osteoarthritis of knee (principal); M25.462 Effusion, left knee; M25.461 Effusion, right knee